=== PATIENT | female | born 1975 | race Caucasian/White ===

== ENCOUNTER → 2024-02-14 08:58 | Outpatient (REF) | payer BC, SELFPAY | LOC: HWRAD 08:58 | PROVIDERS: ATTENDING PHYSICIAN Family Medicine | DX: K90.0 Celiac disease (principal) | CPT/HCPCS: 77080 ==

== ENCOUNTER → 2024-04-19 08:59 | Outpatient (REF) | payer SELFPAY | LOC: HWRAD 08:59 | PROVIDERS: ATTENDING PHYSICIAN Internal Medicine | DX: E78.00 Pure hypercholesterolemia, unspecified (principal) | CPT/HCPCS: 75571 ==